=== PATIENT | male | born 1995 | race Caucasian/White ===

== ENCOUNTER 2017-04-05 22:55 | Emergency (ER) | payer BC ==
[2017-04-05 23:01] VITALS: TEMP 97.7
[2017-04-06] MEDS ORDERED: OXYCODONE/APAP 5/325MG PREPACK#4 BTL TAKEHOME ONE (00:22)
--- NOTE | 2017-04-06 00:22 | EDPHY ---
General Narrative: CHIEF COMPLAINT: Left thumb laceration HISTORY OF PRESENT ILLNESS: Patient presents with complaints of left thumb laceration. He was cooking with a clean kitchen knife when he accidentally cut his left thumb around 10:00 p.m.. Moderate bleeding noted. No numbness. Some tingling. No difficulty moving the thumb but it is painful to do so. No injury elsewhere. No glass or foreign body. Tetanus is up-to-date. No other associated complaints or modifying factors. TIME OF INJURY: 10:00 p.m. today TETANUS STATUS: Less than 10 years ago MEDICAL/SURGICAL/SOCIAL HISTORY: Denies any medical problems. [employer] ([place], [place]) student. Originally from [place] REVIEW OF SYSTEMS: Ten systems reviewed and are negative unless otherwise noted in the HPI EXAMINATION General Appearance: Alert, no distress Head: normocephalic, atraumatic Cardiovascular: Symmetric radial pulses 2+. Brisk cap refill left thumb. Neurological: A&O, light sensation of the back of thumb symmetric. Good strength of the interossei including the thumb. Skin: Warm and dry, no rash. There is a 3 cm laceration on the left thumb, palmar pad distal phalanx. No pulsatile bleeding. No foreign body. No exposure of the underlying tendon. Extremities: Tenderness of the left thumb over the area laceration. Full flexion and extension retained. DIFFERENTIAL DIAGNOSES: Including but not limited to laceration, complex laceration, laceration with tendon injury, laceration foreign body MDM: 11:30 p.m. Left thumb laceration, anterolateral. No tendon injury. No foreign body. Neurovascular intact distally. I have administered a ring block. Proceed with irrigation closure. No indication for x-ray at this time. 12:20 a.m. Complex laceration of the left thumb that has been closed without difficulty. Excellent approximation of wound borders. Neurovascular intact. Wound care discussed. Follow up here in 7-10 days for suture removal. Xeroform and tube gauze applied for 48 hr dressing. Patient is comfortable with this plan and discharged home stable condition. PROCEDURE: Laceration repair Consent: Verbal Location: Left thumb, palmar side Length of repair: 3 cm Complexity: Complex Layer involvement: Single Anesthesia: Digital block as below Irrigation: Extensive Debridement: None Procedure description: Following good anesthesia, the wound was copiously irrigated. Wound bed was explored with a sterile glove, and there is no foreign body noted. No obvious tendon injury. Wound borders were approximated well with good hemostasis. Tolerated well without complication. Suture/Staple material: 5-0 Prolene, 7 simple interrupted sutures Wound care: Routine as discussed Suture/Staple removal: 7-10 Days PROCEDURE: Digital Block Indication: Thumb laceration Consent: Verbal Location: Left thumb Anesthesia: Lidocaine 1% plain, 0.25% Marcaine plain, 5mL Description: Base of the finger was prepped. The above was infused in a ring block fashion without difficulty. Tolerated well. Good anesthesia. Complications: None SUPERVISION: This patient was independently evaluated without direct involvement of or examination by the attending physician. ED Precautions: Worsening pain. Erythema, edema, cyanosis, pallor, paresthesia or anesthesia. - History Smoking Status: Never smoked - Objective Vital Signs: Initial Vital Signs Temperature (C) 97.7 F 04/05/17 22:58 Heart Rate 63 04/05/17 22:58 Respiratory Rate 16 04/05/17 22:58 Blood Pressure 154/104 H 04/05/17 22:58 O2 Sat (%) 95 04/05/17 22:58 O2 Delivery Mode Room Air Allergies/Adverse Reactions: cephalexin [From Keflex] Allergy (Verified 04/05/17 23:01) Home Medications: Medication Instructions Recorded Ritalin 10mg (*) 04/05/17 VYVANSE 04/05/17 Medications Given: Discontinued Medications Oxycodone/Acetaminophen (Percocet 5/325mg Prepack#4) 1 btl TAKEHOME EDNOW ONE Stop: 04/06/17 00:23 Last Admin: 04/06/17 00:30 Dose: 1 btl Departure - Departure Disposition: Home, Routine, Self-Care Clinical Impression: Laceration of thumb, left, complicated Qualifiers: Encounter type: initial encounter Qualified Code(s): S61.012A - Laceration without foreign body of left thumb without damage to nail, initial encounter Condition: Good Instructions: Oxycodone/Acetaminophen (By mouth), Care For Your Stitches (ED), Laceration (ED) Additional Instructions: 1. Daily wound care as discussed 2. ED precautions for infection as discussed 3. Return to ED in 7-10 days for suture removal Referrals: OSWALDO BEE [Other] - As per Instructions Stand Alone Forms: Work Limited Duty, Work Excuse
[2017-04-06 00:39] VITALS: BP 140/42; PULSE 65; RESP 14; O2SAT 94
== END 2017-04-06 00:39 | disposition home or self-care (01) ==
PROC: 0HQFXZZ Repair Right Hand Skin, External Approach (ICD-10-PCS; principal; 2017-04-05)
DX: S61.012A Laceration without foreign body of left thumb without damage to nail, initial encounter (principal); W26.0XXA Contact with knife, initial encounter; Y93.G3 Activity, cooking and baking